=== PATIENT | female | born 1970 | race Caucasian/White ===

== ENCOUNTER 2017-02-04 15:11 | Emergency (ER) | payer OTHER ==
[~2017-02-04] VITALS: Ht 160 cm; Wt 56.0 kg
[2017-02-04 15:14] VITALS: BP 139/75; PULSE 75; RESP 15; TEMP 99.5; O2SAT 98
[2017-02-04] MEDS ORDERED: CYCL1TAB29 PO (15:58)
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
== END 2017-02-04 16:07 | disposition home or self-care (01) ==
LOC: PHEFT 15:11
DX: S29.012A Strain of muscle and tendon of back wall of thorax, initial encounter (principal); V89.2XXA Person injured in unspecified motor-vehicle accident, traffic, initial encounter
CPT/HCPCS: 99283